=== PATIENT | female | born 1945 | race Caucasian/White ===

== ENCOUNTER → 2018-02-28 | Outpatient (CLI) | payer MEDICARE, BC | END | disposition home or self-care (01) | LOC: RAD 12:32 | PROVIDERS: ATTEND Family Medicine | DX: M25.511 Pain in right shoulder (principal) ==

== ENCOUNTER → 2018-03-06 | Outpatient (CLI) | payer MEDICARE, BC ==
[~2018-03-06] MED LIST: BIOT25005 PO; CALCIUM PO; MULT-516 PO; SIMV20TA3 PO; TOPI25TA8 PO
== END | disposition home or self-care (01) ==
LOC: STAR 10:43
PROVIDERS: ATTEND Surgery
DX: Z01.818 Encounter for other preprocedural examination (principal); K42.9 Umbilical hernia without obstruction or gangrene; K43.9 Ventral hernia without obstruction or gangrene
CPT/HCPCS: 93005

== ENCOUNTER 2018-03-11 08:43 | Day surgery (SDC) | payer MEDICARE, BC ==
[~2018-03-11] VITALS: Ht 163.8 cm; Wt 60.0 kg
[2018-03-11] MEDS ORDERED: MIDAZOLAM 1 MG/ML, 2ML ONE (09:29)
[2018-03-11] MEDS ORDERED: FENTANYL PF 250 MCG/5ML ONE (09:30)
[2018-03-11 09:39] VITALS: BP 131/75
[2018-03-11] MEDS ORDERED: LACTATED RINGERS 1,000 ML IV SCH (09:41)
[2018-03-11] MEDS ORDERED: BUPIVACAINE/PF 0.5% ONE (10:21)
[2018-03-11] MEDS ORDERED: EPINEPHRINE 1 MG/ML, 1ML ONE (10:21)
[2018-03-11] MEDS ORDERED: PROPOFOL 10 MG/ML, 20ML ONE (10:45)
[2018-03-11] MEDS ORDERED: CEFAZOLIN 1,000 MG ONE (10:45)
[2018-03-11] MEDS ORDERED: EPHEDRINE 50 MG/ML, 1ML ONE (10:45)
[2018-03-11] MEDS ORDERED: DEXAMETHASONE 4 MG/ML, 1ML ONE (10:45)
[2018-03-11] MEDS ORDERED: ROCURONIUM 10 MG/ML,10ML ONE (10:45)
[2018-03-11] MEDS ORDERED: ONDANSETRON 2MG/ML, 2ML ONE (10:45)
[2018-03-11] MEDS ORDERED: SUCCINYLCHOLINE 20 MG/ML, 10ML ONE (10:45)
[2018-03-11] MEDS ORDERED: GLYCOPYRROLATE 0.2MG/1ML, 5ML ONE (10:45)
[2018-03-11] MEDS ORDERED: KETOROLAC 30 MG/1 ML ONE (10:45)
[2018-03-11] MEDS ORDERED: ONDANSETRON 2MG/ML, 2ML IVPush PRN (11:30)
[2018-03-11] MEDS ORDERED: LABETALOL 5MG/ML, 20ML IV PRN (11:30)
[2018-03-11] MEDS ORDERED: PROMETHAZINE 25 MG/ML, 1ML IV PRN (11:30)
[2018-03-11] MEDS ORDERED: METOCLOPRAMIDE 5 MG/ML, 2ML IV PRN (11:30)
[2018-03-11] MEDS ORDERED: ALBUTEROL SULFATE 2.5 MG/3 ML NPPB PRN (11:30)
[2018-03-11] MEDS ORDERED: hydrALAzine 20 MG/ML, 1ML IV PRN (11:30)
[2018-03-11] MEDS ORDERED: KETOROLAC 30 MG/1 ML IV PRN (11:30)
[2018-03-11] MEDS ORDERED: HYDROmorphone 1 MG/ML, 1ML IV PRN (11:30)
[2018-03-11] MEDS ORDERED: FENTANYL PF 100 MCG/2ML ONE (13:01)
[2018-03-11] MEDS: FENTANYL PF 100 MCG/2ML IV PRN ×2 (13:01→13:12)
[2018-03-11] MEDS ORDERED: OXYcodone 5 MG/5 ML ORAL.SOL UDC ONE (13:01)
[2018-03-11] MEDS ORDERED: PROMETHAZINE 25 MG/ML, 1ML ONE (13:03)
[2018-03-11] MEDS: OXYcodone 5 MG/5 ML ORAL.SOL UDC PO PRN ×2 (13:12→17:16)
[2018-03-11] MEDS ORDERED: MEPERIDINE/PF 50 MG/ML ONE (13:28)
[2018-03-11] MEDS: MEPERIDINE/PF 25MG/0.5ML IVPush PRN ×2 (13:34→13:52)
[2018-03-11] MEDS ORDERED: HYDROmorphone 2 MG/ML, 1ML ONE (15:11)
[2018-03-11] MEDS ORDERED: HYDROmorphone 2 MG/ML, 1ML IVPush PRN (15:30)
== END 2018-03-11 18:35 | disposition home or self-care (01) ==
LOC: OUT 08:43
PROVIDERS: ATTEND Surgery
DX: K42.0 Umbilical hernia with obstruction, without gangrene (principal); K43.9 Ventral hernia without obstruction or gangrene; G43.909 Migraine, unspecified, not intractable, without status migrainosus; Z98.890 Other specified postprocedural states; Z87.891 Personal history of nicotine dependence; Z72.89 Other problems related to lifestyle; Z79.899 Other long term (current) drug therapy
CPT/HCPCS: 49653; C1781; J0171; J0330; J0690; J1100; J1170; J1885; J2175; J2250; J2405; J2550; J2704; J3010; J3490; J7120

== ENCOUNTER 2020-12-27 06:06 | Day surgery (SDC) | payer MEDICARE, BC ==
[~2020-12-27] VITALS: Ht 163.8 cm; Wt 58.3 kg
[~2020-12-27 06:06] MED LIST changes: +SIMV20TA19 PO; -SIMV20TA3 PO
[2020-12-27 06:46] VITALS: BP 120/74
[2020-12-27] MEDS ORDERED: SODIUM CHLORIDE 0.9% 1,000 ML IV SCH (07:00)
[2020-12-27] MEDS ORDERED: CEFAZOLIN PMX 1GM/50ML 50 ML IV ONE (07:00)
[2020-12-27] MEDS ORDERED: PLEASE ENTER HEIGHT AND WEIGHT MC SCH (07:00)
[2020-12-27] MEDS ORDERED: LIDOCAINE 1%, 20ML ONE (07:56)
[2020-12-27] MEDS ORDERED: FLUMAZENIL 0.1 MG/1 ML, 5ML ONE (08:23)
[2020-12-27] MEDS ORDERED: NALOXONE 1 MG/ML, 2ML ONE (08:23)
[2020-12-27] MEDS ORDERED: FENTANYL PF 100 MCG/2ML ONE (08:23)
[2020-12-27] MEDS ORDERED: MIDAZOLAM 1 MG/ML, 5ML ONE (08:23)
== END 2020-12-27 11:05 | disposition home or self-care (01) ==
LOC: OUT 06:06
PROVIDERS: ATTEND Internal Medicine
DX: C82.13 Follicular lymphoma grade II, intra-abdominal lymph nodes (principal); E78.5 Hyperlipidemia, unspecified; N18.9 Chronic kidney disease, unspecified; Z79.899 Other long term (current) drug therapy; Z87.891 Personal history of nicotine dependence
CPT/HCPCS: 20220; 36561; 76937; 77001; 77012; 88307; 88311; 88323; 88341; 88342; 99156; 99157; C1788; J0690; J1642; J2250; J3010; J7030; J2310